=== PATIENT | male | born 2000 | race Caucasian/White ===

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

== ENCOUNTER 2021-12-02 18:26 | Emergency (ER) | payer MEDICAID, OTHER ==
[2021-12-02] MEDS ORDERED: Lidocaine 1% 5 ML VIAL INJECT ONE (18:52)
[2021-12-02] MEDS ORDERED: Bacitracin Oint 1 GM U/D Packet TOP ONE (18:52)
== END 2021-12-02 19:35 | disposition home or self-care (01) ==
LOC: JP.ED 18:26
DX: S61.225A Laceration with foreign body of left ring finger without damage to nail, initial encounter (principal); Z88.0 Allergy status to penicillin; Z88.2 Allergy status to sulfonamides; W26.8XXA Contact with other sharp object(s), not elsewhere classified, initial encounter
CPT/HCPCS: 99283